=== PATIENT | male | born 1960 | race Caucasian/White ===

== ENCOUNTER → 2019-07-13 | Outpatient (CLI) | payer OTHER ==
--- NOTE | 2019-07-14 11:20 | PCVCIMAG ---
APPROVED REPORT Study performed: 07/13/2019 15:41:19 Exam: Stress Echocardiogram Indication: Chest pain, fatigue Patient Location: Echo lab Stress Nurse: Audrey Mckay RN Room #: 2 Status: routine Ht: 5 ft 11 in HR: 83 bpm BP: 170/100 mmHg Rhythm: NSR Medical History Medical History: Diabetes, Hyperlipidemia Medications: Losartan- held Cardiac Risk Factors: HTN, DM, Hyperlipidemia Previous Cardiac Procedures: none Pretest Chest Pain Characteristics: No chest pain Exercise History: Sedentary Procedure The patient underwent an Exercise Stress Test using the Jessy Protocol. Blood pressure, heart rate, and EKG were monitored. An Echocardiogram was performed by care technician in four stages in quad fashion. At peak stress, four selected images were obtained and placed side by side with resting images for comparison. Stress Test Details Stress Test: Exercise stress testing was performed using a Jessy protocol. HR Resting HR: 83 bpmMax Heart Rate (APMHR): 162 bpm Max HR Achieved: 130 bpmTarget HR (85% APMHR): 137 bpm % of APMHR: 80 Recovery HR: 92 bpm HR response to stress: Normal HR response to stress BP Resting BP: 170/100 mmHg Max BP: 230/120 mmHg Recovery BP: 170/100 mmHg BP response to stress: Abnormal hypertensive response to stress. All meds were held pre stress ECG Resting ECG: Sinus Rhythm Stress ECG: Sinus Rhythm ST Change: Non-ischemic Maximum ST Deviation: -0.25 mm Arrhythmia: Occ PAC, Rare PVC Recovery ECG: Sinus Rhythm Recovery ST Change: Non-ischemic Recovery ST Deviation: -0.65 mm Recovery Arrhythmia: Rare PVC, PAC Clinical Reason for Termination: Maximal effort Stress Symptoms: dyspnea, fatigue Exercise duration: 6 min 01 sec Highest Stage Achieved: Stage 2: 2.5 mph at 12% grade. Exercise capacity: 7.0 METs Overall Exercise Capacity for Age: Poor Scale: Sedentary Angina Score: None No complications. Stress ECG Conclusion The patient exercised according to the JESSY protocol for 6:01 mins; achieving a work level of 7.0 METS. The resting heart rate of 92 bpm zoie to a maximum heart rate of 130 bpm. This value represent 80% of the maximal, age-predicted heart rate. The resting blood pressure of 170/100 mmHg, zoie to a maximum blood pressure of 230/120 mmHg. The exercise test was stopped due to fatigue and dyspnea . Turpin Treadmill Score is 7.3 which is Low risk. Pre-Stress Echo The resting Echocardiogram showed normal left ventricular contractility with an estimated Ejection Fraction of about 55-60%. Normal wall motion in all segments on baseline images. Post-Stress Echo The stress Echocardiogram showed normal left ventricular contractility with an estimated Ejection Fraction of about 65-70%. Normal augmentation of wall motion in all segments on post stress images. Clinical No clinical or ECG evidence for ischemia. Conclusion Clinical Response: Non-ischemic Exercise Capacity: Below Average Stress ECG Response: Non-ischemic Stress Echo Images: Non-ischemic No clinical, EKG or echocardiographic evidence for ischemia. No echocardiographic evidence for exercise induced ischemia. Normal stress echocardiogram with submaximal exercise stress. No prior study available for comparison. <Conclusion> No clinical, EKG or echocardiographic evidence for ischemia. No echocardiographic evidence for exercise induced ischemia. Normal stress echocardiogram with submaximal exercise stress.
== END | disposition home or self-care (01) ==
LOC: PCVCIMAG 15:30
PROVIDERS: ATTEND Internal Medicine Cardiovascular Disease
DX: R07.9 Chest pain, unspecified (principal); R06.02 Shortness of breath; I10 Essential (primary) hypertension; E78.5 Hyperlipidemia, unspecified; E11.9 Type 2 diabetes mellitus without complications
CPT/HCPCS: 93325; 93351